=== PATIENT | female | born 1985 | race Caucasian/White ===

== ENCOUNTER 2017-04-13 21:34 | Emergency (ER) | payer MEDICARE, OTHER ==
[~2017-04-13] VITALS: Ht 160 cm; Wt 80.0 kg
[2017-04-13 21:36] VITALS: BP 122/81; PULSE 122; RESP 16; TEMP 100.1; O2SAT 95
[2017-04-13] MEDS ORDERED: LORA-474 PO (21:59)
[2017-04-13] MEDS ORDERED: SERO400T PO (21:59)
[2017-04-13] MEDS ORDERED: TRAZ300T2 PO (21:59)
[2017-04-13] MEDS ORDERED: TRIL300T PO (21:59)
[2017-04-13] MEDS ORDERED: DILA100C PO (21:59)
[2017-04-13] MEDS ORDERED: SERO200T PO (21:59)
[2017-04-13] MEDS ORDERED: OXYC-396 PO (21:59)
[2017-04-13] MEDS ORDERED: NEUR800T PO (21:59)
[2017-04-13 23:51] VITALS: BP 118/71; PULSE 111; RESP 20; O2SAT 96
--- NOTE | 2017-04-14 01:57 | PD ---
HPI Chief Complaint: Medical Clearance Time Seen by Provider: 01:31 Travel History International Travel<30 days: No Contact w/Intl Traveler<30days: No Traveled to known affect area: No History of Present Illness HPI 31-year-old female requesting medication for seizure disorder and psychiatric disorder. Patient has history of seizure and schizoaffective disorder. Patient was released from psychiatric hospital today and unable to fill the prescription tonight for her routine medication. Patient states that she has mild coughing congestion recently from a cold. Patient denies any headache. Patient denies any chest pain or shortness of breath. Patient denies abdominal pain. Patient denies any nausea vomiting. Patient states that she has mild intermittent diarrhea. PFSH Past Medical History Asthma: Yes (CHILDHOOD,STABLE NOW.) Anxiety: Yes COPD: No Diabetes: No Medical other: Yes (EPILEPSY , PTSD ) Migraines: Yes Schizophrenia: Yes ?: Not Past Surgical History Cholecystectomy: Yes Social History Alcohol Use: No Tobacco Use: Yes Substance Use: No Allergies-Medications (Allergen,Severity, Reaction): Coded Allergies: divalproex sodium (Unverified Allergy, Severe, 04/13/17) penicillin G (Unverified Allergy, Severe, 04/13/17) Reported Meds & Prescriptions Reported Meds & Active Scripts Active Reported Trileptal (Oxcarbazepine) 300 Mg Tab 300 Mg PO DAILY Dilantin (Phenytoin Extended) 100 Mg Cap 200 Mg PO BID Trazodone (Trazodone HCl) 300 Mg Tab 300 Mg PO HS Seroquel (Quetiapine Fumarate) 400 Mg Tab 600 Mg PO HS Seroquel (Quetiapine Fumarate) 200 Mg Tab 200 Mg PO DAILY Oxycodone (Oxycodone HCl) 20 Mg Tab 20 Mg PO BID PRN Neurontin (Gabapentin) 800 Mg Tab 1,200 Mg PO BID Ativan (Lorazepam) 1 Mg Tab 1 Mg PO BID PRN Review of Systems General / Constitutional: No: Fever Eyes: No: Visual changes HENT: No: Headaches Cardiovascular: No: Chest Pain or Discomfort Respiratory: No: Shortness of Breath Gastrointestinal: No: Abdominal Pain Genitourinary: No: Dysuria Musculoskeletal: No: Pain Skin: No Rash Neurologic: No: Weakness Psychiatric: No: Depression Endocrine: No: Polydipsia Hematologic/Lymphatic: No: Easy Bruising Physical Exam Narrative GENERAL: Well-nourished, well-developed patient. SKIN: Focused skin assessment warm/dry. HEAD: Normocephalic. EYES: No scleral icterus. No injection or drainage. NECK: Supple, trachea midline. No JVD or lymphadenopathy. CARDIOVASCULAR: Regular rate and rhythm without murmurs, gallops, or rubs. RESPIRATORY: Breath sounds equal bilaterally. No accessory muscle use. GASTROINTESTINAL: Abdomen soft, non-tender, nondistended. MUSCULOSKELETAL: No cyanosis, or edema. BACK: Nontender without obvious deformity. No CVA tenderness. Neurologic exam normal. Data Data Last Documented VS Vital Signs Date Time Temp Pulse Resp B/P (MAP) Pulse Ox O2 Delivery O2 Flow Rate FiO2 04/13/17 23:51 111 20 118/71 (87) 96 Room Air 04/13/17 21:36 100.1 Orders Orders Gabapentin (Neurontin) (04/14/17 02:00) Quetiapine (Seroquel) (04/14/17 02:00) Phenytoin (Dilantin) (04/14/17 02:00) MDM Medical Decision Making Medical Screen Exam Complete: Yes Emergency Medical Condition: Yes Differential Diagnosis Differential diagnosis including medication for medical condition. Narrative Course 31-year-old female with request for medication tonight for her seizure and her psychiatric condition. Neurontin, Seroquel and Dilantin given. Advised patient to follow up with a local physician. Diagnosis Primary Impression: Seizure Patient Instructions: General Instructions Additional Instructions: Advised patient to continue medications as directed. Follow-up with local physician. Med/Other Pt SpecificInfo: No Change to Meds Disposition: 01 DISCHARGE HOME Condition: Stable Fred Chase MD Apr 14, 2017 01:57
[2017-04-14] MEDS ORDERED: PHENYTOIN SODIUM 100 MG CAP PO ONE (02:00)
[2017-04-14] MEDS ORDERED: QUEtiapine FUMARATE 300 MG TAB PO ONE (02:00)
[2017-04-14] MEDS ORDERED: GABAPENTIN 400 MG CAP PO ONE (02:00)
== END 2017-04-14 02:12 | disposition home or self-care (01) ==
LOC: NEPE 21:34
DX: G40.909 Epilepsy, unspecified, not intractable, without status epilepticus (principal); F25.9 Schizoaffective disorder, unspecified; R19.7 Diarrhea, unspecified; Z72.0 Tobacco use
CPT/HCPCS: 99283

== ENCOUNTER 2017-04-14 17:59 | Inpatient (IN) | payer MEDICARE, OTHER ==
[~2017-04-14] VITALS: Ht 162.6 cm; Wt 76.3 kg
[~2017-04-14 17:59] MED LIST: DILA100C PO; LORA-474 PO; NEUR800T PO; OXYC-396 PO; SERO200T PO; SERO400T PO; TRAZ300T2 PO; TRIL300T PO
[2017-04-14 18:20] VITALS: BP 119/68; PULSE 87; RESP 20; TEMP 97.5; O2SAT 99
[2017-04-14 19:06] LABS: AUTOMATED NEUTROPHIL # 3.6 TH/MM3 (1.8-7.7); BASOPHIL # 0.1 TH/MM3 (0-0.2); BASOPHIL % 0.9 % (0.0-2.0); EOSINOPHIL # 0.1 TH/MM3 (0-0.4); EOSINOPHIL % 1.3 % (0.0-4.0); HEMATOCRIT 39.3 % (35.0-46.0); HEMOGLOBIN 13.5 GM/DL (11.6-15.3); LYMPH % 27.9 % (9.0-44.0); LYMPHOCYTE # 1.7 TH/MM3 (1.0-4.8); MEAN CORPUSCULAR HGB CONC 34.4 % (32.0-36.0); MEAN PLATELET VOLUME 7.5 FL (7.0-11.0); MONO % 11.8 % (0.0-8.0); MONOCYTE # 0.7 TH/MM3 (0-0.9); NEUT % 58.1 % (16.0-70.0); PLATELET COUNT 250 TH/MM3 (150-450); RED BLOOD COUNT 4.23 MIL/MM3 (4.00-5.30); RED CELL DISTRIBUTION WIDTH 13.5 % (11.6-17.2); WHITE BLOOD COUNT 6.3 TH/MM3 (4.0-11.0)
[2017-04-14 19:20] LABS: ALBUMIN 4.3 GM/DL (3.4-5.0); AST (GOT) 34 U/L (15-37); BLOOD UREA NITROGEN 11 MG/DL (7-18); CHLORIDE 106 MEQ/L (98-107); CREATININE 0.81 MG/DL (0.50-1.00); GLOMERULAR FILTRATION RATE 82 ML/MIN (>89); GLUCOSE,RANDOM 85 MG/DL (74-106); SODIUM (NA) 138 MEQ/L (136-145)
[2017-04-14] MEDS ORDERED: LORazepam 2 MG/ML VIAL ONE (19:20)
[2017-04-14 19:26] VITALS: BP 128/73; PULSE 100; RESP 18; O2SAT 98
[2017-04-14] MEDS ORDERED: LORazepam 2 MG/ML VIAL IV PUSH ONE (19:30)
[2017-04-14] MEDS ORDERED: levETIRAcetam INJ 100 ML IV ONE (19:30)
[2017-04-14 19:38] LABS: ALKALINE PHOSPHATASE 68 U/L (45-117); ALT (GPT) 65 U/L (10-53); PHENYTOIN (DILANTIN) 4.5 MCG/ML (10.0-20.0); TOTAL BILIRUBIN ADULT 0.2 MG/DL (0.2-1.0); TOTAL PROTEIN 8.4 GM/DL (6.4-8.2)
--- NOTE | 2017-04-14 19:56 | PD ---
HPI . Psychiatric Chief Complaint: Psychiatric Symptoms Time Seen by Provider: 19:17 Travel History International Travel<30 days: No Contact w/Intl Traveler<30days: No Traveled to known affect area: No History of Present Illness HPI 31-year-old female history of seizure activity, seen here last night given a dose of her medications which she had ran out of, and given prescriptions for same, presents this evening with recurrent seizure activity. 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 Patient was in triage and witnessed to have a tonic-clonic episode lasting approximately 30- 45 seconds, followed by several seconds of confusion within 2-3 minutes was completely awake and alert. This may represent patient's chronic seizure activity, patient given Ativan 1 mg IV push, followed by loading with Keppra 1 g. Patient currently has no complaints. Denies having headache visual changes , neck pain or stiffness, chest pain shortness of breath or cough, focal weakness or tingling. Patient did not have any tongue biting or mouth lesions noted afterwards, and has no incontinence. Patient denies fever chills or sweats or recent concomitant illness. [facility] Past Medical History Narrative Medical Past medical history reviewed. See history of present illness Asthma: Yes (CHILDHOOD,STABLE NOW.) Anxiety: Yes COPD: No Diabetes: No Medical other: Yes (MENTALY RETARDED) Migraines: Yes Schizophrenia: Yes Seizures: Yes Tetanus Vaccination: < 5 Years ?: Not Past Surgical History Cholecystectomy: Yes Social History Alcohol Use: No Tobacco Use: Yes Substance Use: No Allergies-Medications (Allergen,Severity, Reaction): Coded Allergies: divalproex sodium (Unverified Allergy, Severe, 04/13/17) penicillin G (Unverified Allergy, Severe, 04/13/17) Reported Meds & Prescriptions Reported Meds & Active Scripts Active Reported Trileptal (Oxcarbazepine) 300 Mg Tab 300 Mg PO DAILY Dilantin (Phenytoin Extended) 100 Mg Cap 200 Mg PO BID Trazodone (Trazodone HCl) 300 Mg Tab 300 Mg PO HS Seroquel (Quetiapine Fumarate) 400 Mg Tab 600 Mg PO HS Seroquel (Quetiapine Fumarate) 200 Mg Tab 200 Mg PO DAILY Oxycodone (Oxycodone HCl) 20 Mg Tab 20 Mg PO BID PRN Neurontin (Gabapentin) 800 Mg Tab 1,200 Mg PO BID Ativan (Lorazepam) 1 Mg Tab 1 Mg PO BID PRN Narrative Medication Allergies and medications reviewed Review of Systems Except as stated in HPI: all other systems reviewed are Neg General / Constitutional: No: Fever Eyes: No: Visual changes HENT: No: Headaches Cardiovascular: No: Chest Pain or Discomfort Respiratory: No: Shortness of Breath Gastrointestinal: No: Abdominal Pain Genitourinary: No: Dysuria Musculoskeletal: No: Pain Skin: No Rash Neurologic: Positive: Seizures, No: Weakness, Focal Abnormalities, Coordination Problem, Ataxia, Headache, Incontinence, Sensory Disturbance Psychiatric: No: Depression Endocrine: No: Polydipsia Hematologic/Lymphatic: No: Easy Bruising Physical Exam Narrative GENERAL: Awake alert oriented 3 no acute distress SKIN: Warm and dry. Color is normal no diaphoresis cyanosis or pallor HEAD: Atraumatic. Normocephalic. EYES: Pupils equal and round. No scleral icterus. No injection or drainage. EOMI no nystagmus ENT: No nasal bleeding or discharge. Mucous membranes pink and moist. Uvula midline no stridor no drooling tolerating by mouth, phonating normally NECK: Trachea midline. No JVD. Negative Kernig's Brudzinski's, full range of motion CARDIOVASCULAR: Regular rate and rhythm. S1-S2 no murmurs or gallops RESPIRATORY: No accessory muscle use. Clear to auscultation. Breath sounds equal bilaterally. GASTROINTESTINAL: Abdomen soft, non-tender, nondistended. Hepatic and splenic margins not palpable. MUSCULOSKELETAL: Extremities without clubbing, cyanosis, or edema. No obvious deformities. NEUROLOGICAL: Awake and alert. No obvious cranial nerve deficits. Motor grossly within normal limits. Five out of 5 muscle strength in the arms and legs. Normal speech. PSYCHIATRIC: Appropriate mood and affect; cooperative Data Data Last Documented VS Vital Signs Date Time Temp Pulse Resp B/P (MAP) Pulse Ox O2 Delivery O2 Flow Rate FiO2 04/14/17 19:26 100 18 128/73 (91) 98 Room Air 04/14/17 18:20 97.5 Orders Orders Complete Blood Count With Diff (04/14/17 18:27) Comprehensive Metabolic Panel (04/14/17 18:27) Phenytoin (Dilantin) (04/14/17 18:27) Psych Screen (04/14/17 18:27) Drug Screen, Random Urine (04/14/17 18:27) Lorazepam Inj (Ativan Inj) (04/14/17 19:20) Lorazepam Inj (Ativan Inj) (04/14/17 19:30) Levetiracetam Inj (Keppra Inj) (04/14/17 19:30) Labs Laboratory Tests Test 04/14/17 18:30 White Blood Count 6.3 TH/MM3 Red Blood Count 4.23 MIL/MM3 Hemoglobin 13.5 GM/DL Hematocrit 39.3 % Mean Corpuscular Volume 93.0 FL Mean Corpuscular Hemoglobin 32.0 PG Mean Corpuscular Hemoglobin Concent 34.4 % Red Cell Distribution Width 13.5 % Platelet Count 250 TH/MM3 Mean Platelet Volume 7.5 FL Neutrophils (%) (Auto) 58.1 % Lymphocytes (%) (Auto) 27.9 % Monocytes (%) (Auto) 11.8 % Eosinophils (%) (Auto) 1.3 % Basophils (%) (Auto) 0.9 % Neutrophils # (Auto) 3.6 TH/MM3 Lymphocytes # (Auto) 1.7 TH/MM3 Monocytes # (Auto) 0.7 TH/MM3 Eosinophils # (Auto) 0.1 TH/MM3 Basophils # (Auto) 0.1 TH/MM3 CBC Comment DIFF FINAL Differential Comment Blood Urea Nitrogen 11 MG/DL Creatinine 0.81 MG/DL Random Glucose 85 MG/DL Total Protein 8.4 GM/DL Albumin 4.3 GM/DL Calcium Level 9.0 MG/DL Alkaline Phosphatase 68 U/L Aspartate Amino Transf (AST/SGOT) 34 U/L Alanine Aminotransferase (ALT/SGPT) 65 U/L Total Bilirubin 0.2 MG/DL Sodium Level 138 MEQ/L Potassium Level 3.7 MEQ/L Chloride Level 106 MEQ/L Carbon Dioxide Level 23.0 MEQ/L Anion Gap 9 MEQ/L Estimat Glomerular Filtration Rate 82 ML/MIN Urine Opiates Screen NEG Urine Barbiturates Screen NEG Phenytoin (Dilantin) Level 4.5 MCG/ML Urine Amphetamines Screen NEG Urine Benzodiazepines Screen NEG Urine Cocaine Screen NEG Urine Cannabinoids Screen NEG MDM Medical Decision Making Medical Screen Exam Complete: Yes Emergency Medical Condition: Yes Medical Record Reviewed: Yes Differential Diagnosis She seizures, seizure-like activity/pseudoseizures, psychosomatic Narrative Course Patient's lab reviewed, patient's Dilantin level low low therapeutic at 4.7. As noted above patient was given Ativan for recurrent seizure activity, as well as loaded with Keppra 1 g. Patient will be loaded orally with her evening dose of Dilantin. Diagnosis Primary Impression: Seizures Patient Instructions: General Instructions, Generalized Tonic Clonic Seizures ( ED) Additional Instructions: Take medications as prescribed. Follow-up with your neurologist. Return for worsening Disposition: 01 DISCHARGE HOME Condition: Stable Ilir Wright MD Apr 14, 2017 19:56
[2017-04-14] MEDS ORDERED: PHENYTOIN SODIUM 100 MG CAP PO ONE (20:00)
[2017-04-15 00:46] VITALS: BP 117/78; PULSE 89; RESP 18; TEMP 98.1; O2SAT 99
[2017-04-15] MEDS ORDERED: QUEtiapine FUMARATE 300 MG TAB PO ONE (04:15)
[2017-04-15] MEDS ORDERED: OXcarbazepine 300 MG TAB PO ONE (04:15)
[2017-04-15] MEDS ORDERED: GABAPENTIN 400 MG CAP PO ONE (04:15)
[2017-04-15] MEDS ORDERED: traZODone HCL 100 MG TAB PO ONE (04:15)
[2017-04-15 04:30] VITALS: BP 127/78; PULSE 89; RESP 18; TEMP 98.1; O2SAT 99
[2017-04-15 07:49] VITALS: BP 107/61; PULSE 90; RESP 18; O2SAT 99
[2017-04-15] MEDS ORDERED: LORazepam 1 MG TAB PO ONE (11:15)
[2017-04-15] MEDS ORDERED: PHENYTOIN SODIUM 100 MG CAP PO ONE ×2 (11:15→11:30)
[2017-04-15 13:45] VITALS: BP 102/67; PULSE 103; RESP 16; TEMP 97.9; O2SAT 96
[2017-04-15] MEDS ORDERED: ALUMINUM/MAGNESIUM/SIMETH 30 ML CUP PO PRN (18:30)
[2017-04-15] MEDS ORDERED: MAGNESIUM HYDROXIDE SUSP 30 ML CUP PO PRN (18:30)
[2017-04-15] MEDS ORDERED: ACETAMINOPHEN 325 MG TAB PO PRN (18:30)
[2017-04-15 19:10] VITALS: BP 102/68; PULSE 103; RESP 18; TEMP 99; O2SAT 96
[2017-04-15] MEDS: QUEtiapine FUMARATE 200 MG TAB PO SCH (20:58)
[2017-04-15] MEDS: traZODone HCL 100 MG TAB PO SCH (20:59)
[2017-04-15] MEDS: GABAPENTIN 400 MG CAP PO SCH (20:59)
[2017-04-15] MEDS: PHENYTOIN SODIUM 100 MG CAP PO SCH (20:59)
[2017-04-15] MEDS: REMOVE OLD NICOTINE PATCH T-DERMAL SCH (21:00)
[2017-04-15] MEDS: LORazepam 1 MG TAB PO PRN (21:33)
[2017-04-16 05:08] VITALS: BP 117/70; PULSE 94; RESP 16; TEMP 98.6; O2SAT 96
[2017-04-16] MEDS ORDERED: NICOTINE 21 MG/24 HR PATCH T-DERMAL SCH (09:00)
[2017-04-16] MEDS: GABAPENTIN 400 MG CAP PO SCH ×2 (09:51→21:16)
[2017-04-16] MEDS: QUEtiapine FUMARATE 200 MG TAB PO SCH ×2 (09:51→21:17)
[2017-04-16] MEDS: OXcarbazepine 300 MG TAB PO SCH (09:52)
[2017-04-16] MEDS: PHENYTOIN SODIUM 100 MG CAP PO SCH ×2 (09:52→21:17)
[2017-04-16] MEDS: LORazepam 1 MG TAB PO PRN (09:52)
[2017-04-16] MEDS: NICOTINE 21 MG/24 HR PATCH T-DERMAL SCH (10:30)
[2017-04-16] MEDS ORDERED: KETOROLAC TROMETHAMINE 10 MG TAB PO PRN (10:30)
[2017-04-16 10:39] LABS: CHOLESTEROL 210 MG/DL (120-200); TRIGLYCERIDES 172 MG/DL (42-150)
--- NOTE | 2017-04-16 10:39 | PD.CONS ---
HPI Service [facility] Consult Requested By Dr. Ramirez Reason for Consult Medical management Primary Care Physician No Primary Care Physician Diagnoses: History of Present Illness 31-year-old female with a past medical history significant for schizoaffective disorder and epilepsy presents to the emergency department with a chief complaint of recurrent seizure activity. The patient has a long history of seizure-like activity/pseudoseizures. The patient reports she has a history of epilepsy for which she takes Dilantin. She reports compliance with her medications until yesterday when she had run out. Dilantin level IV.5 yesterday. She states she was discharged from the [facility] on 04/13/17 where she was given Dilantin, Tegretol and gabapentin. In the waiting room of the emergency department yesterday the patient had tonic clonic seizure like activity that lasted approximately 30-45 seconds without loss of bowel or bladder. The patient was apparently confused for a very short period of time following the episode and then returned to baseline within 2-3 minutes. The patient reports that she has chronic pain in her back from scoliosis and in her left leg from an ORIF secondary to trauma. She reports that she used to take 20 mg of OxyContin Contin twice a [place] but cannot find a provider here to prescribe this medication for her. She complains of body aches, sore throat and cough. Review of Systems Subjective fever/chills Denies blurry vision, otorrhea, rhinorrhea Positive sore throat and cough No chest pain, palpitations, shortness of breath No abdominal pain Denies constipation/diarrhea/nausea/vomiting Positive muscle pain throughout No rashes Past Family Social History Allergies: Coded Allergies: divalproex sodium (Unverified Allergy, Severe, 04/13/17) penicillin G (Unverified Allergy, Severe, 04/13/17) Past Medical History BRANDON per patient report, she does not have a CPAP machine Epilepsy Scoliosis Chronic pain Past Surgical History Left leg ORIF Cholecystectomy Reported Medications Reported Meds & Active Scripts Active Reported Trileptal (Oxcarbazepine) 300 Mg Tab 300 Mg PO DAILY Dilantin (Phenytoin Extended) 100 Mg Cap 200 Mg PO BID Trazodone (Trazodone HCl) 300 Mg Tab 300 Mg PO HS Seroquel (Quetiapine Fumarate) 400 Mg Tab 600 Mg PO HS Seroquel (Quetiapine Fumarate) 200 Mg Tab 200 Mg PO DAILY Oxycodone (Oxycodone HCl) 20 Mg Tab 20 Mg PO BID PRN Neurontin (Gabapentin) 800 Mg Tab 1,200 Mg PO BID Ativan (Lorazepam) 1 Mg Tab 1 Mg PO BID PRN Family History Unknown Social History Smokes approximately 2 packs per day. Denies alcohol and illicit drugs. Physical Exam Vital Signs Vital Signs Date Time Temp Pulse Resp B/P (MAP) Pulse Ox O2 Delivery O2 Flow Rate FiO2 04/16/17 05:08 98.6 94 16 117/70 (86) 96 04/15/17 19:10 99.0 103 18 102/68 (79) 96 04/15/17 17:35 04/15/17 13:45 97.9 103 16 102/67 (79) 96 Room Air Physical Exam GENERAL: female sitting up in bed SKIN: No rashes, ecchymoses or lesions. Cool and dry. HEAD: Atraumatic. Normocephalic. No temporal or scalp tenderness. EYES: Pupils equal round and reactive. Extraocular motions intact. No scleral icterus. No injection or drainage. ENT: Nose without bleeding, purulent drainage or septal hematoma. Throat without erythema, tonsillar hypertrophy or exudate. Uvula midline. Airway patent. NECK: Trachea midline. No JVD or lymphadenopathy. Supple, nontender, no meningeal signs. CARDIOVASCULAR: Regular rate and rhythm without murmurs, gallops, or rubs. RESPIRATORY: Clear to auscultation. Breath sounds equal bilaterally. No wheezes , rales, or rhonchi. GASTROINTESTINAL: Abdomen soft, non-tender, nondistended. No hepato-splenomegaly , or palpable masses. No guarding. MUSCULOSKELETAL: Extremities without clubbing, cyanosis, or edema. No joint tenderness, effusion, or edema noted. No calf tenderness. NEUROLOGICAL: Awake and alert. Cranial nerves II through XII intact. Motor and sensory grossly within normal limits. Normal speech. Flat affect. Laboratory Laboratory Tests Test 04/16/17 09:40 Result Diagram: 04/14/17182904/14/171829 Assessment and Plan Assessment and Plan Assessment/plan: 1. Seizure versus pseudoseizure Patient recently ran out of her Dilantin Dilantin level subtherapeutic at 4.5 Patient status post 1 mg Ativan in the ED followed by 1 g Keppra Status post resumption of home Dilantin yesterday Monitor for seizure activity Follow Dilantin level Consider Neurology consult if seizures recur while patient compliant with medication 2. Chronic pain Patient reports history of opioid pain medication Requests opiates for her back and leg pain No indication for opiates at this time Toradol prn 3. BRANDON Will need outpatient follow-up including sleep study to assess the need for possible CPAP 4. Nicotine dependence Cessation counseling provided Nicotine patch Thank you for this consultation, will follow along with you. Leilani Chew MD Apr 16, 2017 10:39
[2017-04-16 10:42] LABS: CHOLESTEROL/ HDL RATIO 5.69 RATIO; HDL CHOLESTEROL 36.9 MG/DL (40.0-60.0); LDL CHOLESTEROL 139 MG/DL (0-99)
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
[2017-04-16 18:33] VITALS: BP 110/70; PULSE 95; RESP 18; TEMP 98.4; O2SAT 97
[2017-04-16 21:00] VITALS: BP 131/82; PULSE 99; RESP 22; TEMP 98.6; O2SAT 98
[2017-04-16] MEDS: REMOVE OLD NICOTINE PATCH T-DERMAL SCH (21:00)
[2017-04-16] MEDS: REMOVE OLD PATCH T-DERMAL SCH (21:00)
[2017-04-16] MEDS: LORazepam 2 MG/ML VIAL IM PRN (21:16)
[2017-04-16] MEDS: traZODone HCL 100 MG TAB PO SCH (21:17)
[2017-04-16 22:02] VITALS: BP 115/78; PULSE 87; RESP 18; TEMP 97.9; O2SAT 97
--- NOTE | 2017-04-16 22:12 | RADRPT ---
EXAM DATE/TIME: 04/16/2017 21:45 [place] COMPARISON: No previous studies available for comparison. INDICATIONS : Seizure. RADIATION DOSE: 47.09 CTDIvol (mGy) MEDICAL HISTORY : Seizures. SURGICAL HISTORY : None. ENCOUNTER: Initial ACUITY: 1 day PAIN SCALE: 0/10 LOCATION: cranial TECHNIQUE: Multiple contiguous axial images were obtained of the head. Using automated exposure control and adj ustment of the mA and/or kV according to patient size, radiation dose was kept as low as reasonably a chievable to obtain optimal diagnostic quality images. DICOM format image data is available electro nically for review and comparison. FINDINGS: CEREBRUM: The ventricles are normal for age. No evidence of midline shift, mass lesion, hemorrhage or acute in farction. No extra-axial fluid collections are seen. POSTERIOR FOSSA: The cerebellum and brainstem are intact. The 4th ventricle is midline. The cerebellopontine angle i s unremarkable. EXTRACRANIAL: There is mucoperiosteal thickening of the visualized sinuses. Trace fluid seen in both maxillary air cells. SKULL: The calvaria is intact. No evidence of skull fracture. CONCLUSION: No bleed or other acute intracranial abnormality. Mild sinus disease. Winston Mcfarland MD on April 16, 2017 at 22:09 Board Certified Radiologist. This report was verified electronically.
[2017-04-17] VITALS: BP 103/68; PULSE 72; RESP 16; O2SAT 96
[2017-04-17] MEDS: LORazepam 1 MG TAB PO PRN ×2 (03:28→20:32)
[2017-04-17 04:00] VITALS: BP 111/85; PULSE 78; RESP 20; O2SAT 98
[2017-04-17 05:44] VITALS: BP 104/71; PULSE 84; RESP 16; TEMP 98.1; O2SAT 95
[2017-04-17] MEDS ORDERED: REMOVE OLD PATCH T-DERMAL SCH (09:00)
[2017-04-17] MEDS: QUEtiapine FUMARATE 200 MG TAB PO SCH ×2 (09:21→20:32)
[2017-04-17] MEDS: PHENYTOIN SODIUM 100 MG CAP PO SCH ×2 (09:21→20:33)
[2017-04-17] MEDS: GABAPENTIN 400 MG CAP PO SCH ×2 (09:21→20:32)
[2017-04-17] MEDS: OXcarbazepine 300 MG TAB PO SCH (09:21)
[2017-04-17 09:24] LABS: HEMOGLOBIN A1C 5.4 % (4.3-6.0)
[2017-04-17] MEDS: NICOTINE 21 MG/24 HR PATCH T-DERMAL SCH (09:25)
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
--- NOTE | 2017-04-17 14:14 | HHI.PR ---
Subjective Remarks Patient reports an episode of seizure last night. She states she does not remember the event. In discussing with the nurse, the end of the seizure was witnessed by staff. Patient complains of sore throat, runny nose, fatigue and sinus pressure. Objective Vitals Vital Signs Date Time Temp Pulse Resp B/P (MAP) Pulse Ox O2 Delivery O2 Flow Rate FiO2 04/17/17 05:44 98.1 84 16 104/71 (82) 95 04/17/17 04:00 78 20 111/85 (94) 98 04/17/17 00:00 72 16 103/68 (80) 96 04/16/17 22:02 97.9 87 18 115/78 (90) 97 04/16/17 21:00 98.6 99 22 131/82 (98) 98 04/16/17 21:00 98 21 04/16/17 18:33 98.4 95 18 110/70 (83) 97 I/O 04/16/17 04/16/17 04/16/17 04/17/17 04/17/17 04/17/17 07:00 15:00 23:00 07:00 15:00 23:00 Intake Total 480 ml Balance 480 ml Intake Oral 480 ml Result Diagram: 04/14/17182904/14/171829 Objective Remarks GENERAL: female sitting up in bed SKIN: No rashes, ecchymoses or lesions. Cool and dry. HEAD: Atraumatic. Normocephalic. No temporal or scalp tenderness. EYES: Pupils equal round and reactive. Extraocular motions intact. No scleral icterus. No injection or drainage. ENT: Nose without bleeding, purulent drainage or septal hematoma. Throat without erythema, tonsillar hypertrophy or exudate. Uvula midline. Airway patent. Maxillary sinuses tender to palpation. NECK: Trachea midline. No JVD or lymphadenopathy. Supple, nontender, no meningeal signs. CARDIOVASCULAR: Regular rate and rhythm without murmurs, gallops, or rubs. RESPIRATORY: Clear to auscultation. Breath sounds equal bilaterally. No wheezes , rales, or rhonchi. GASTROINTESTINAL: Abdomen soft, non-tender, nondistended. No hepato-splenomegaly , or palpable masses. No guarding. MUSCULOSKELETAL: Extremities without clubbing, cyanosis, or edema. No joint tenderness, effusion, or edema noted. No calf tenderness. NEUROLOGICAL: Awake and alert. Cranial nerves II through XII intact. Motor and sensory grossly within normal limits. Normal speech. Flat affect. A/P Assessment and Plan 1. Seizure versus pseudoseizure Patient recently ran out of her Dilantin - restarted home Dilantin Dilantin level subtherapeutic at 5.3 Patient reportedly had repeat episode of seizure last night Neurology consulted, appreciate assistance 2. Chronic pain Patient reports history of opioid pain medication Requests opiates for her back and leg pain No indication for opiates at this time Toradol prn 3. BRANDON Will need outpatient follow-up including sleep study to assess the need for possible CPAP 4. Nicotine dependence Cessation counseling provided Nicotine patch 5. Upper respiratory infection On physical exam throat without erythema and no nasal discharge present Patient complains of extreme sinus pain and sore throat No leukocytosis Chloraseptic [place] per patient request 6. History of hypothyroidism Patient reports fatigue, states she was previously on Synthroid TSH pending Leilani Chew MD Apr 17, 2017 14:14
[2017-04-17 17:25] VITALS: BP 120/76; PULSE 84; RESP 16; TEMP 98.4; O2SAT 95
[2017-04-17] MEDS: traZODone HCL 100 MG TAB PO SCH (20:32)
[2017-04-17] MEDS: REMOVE OLD PATCH T-DERMAL SCH (20:33)
[2017-04-17] MEDS: REMOVE OLD NICOTINE PATCH T-DERMAL SCH (20:33)
[2017-04-17] MEDS: PHENOL 1.4% SOLN 180 ML BTL OROPHARYNG PRN (20:40)
[2017-04-18 05:41] VITALS: BP 103/66; PULSE 92; RESP 18; TEMP 98.3; O2SAT 95
[2017-04-18] MEDS: GABAPENTIN 400 MG CAP PO SCH ×2 (08:38→20:58)
[2017-04-18] MEDS: OXcarbazepine 300 MG TAB PO SCH (08:38)
[2017-04-18] MEDS: QUEtiapine FUMARATE 200 MG TAB PO SCH ×2 (08:38→20:59)
[2017-04-18] MEDS: NICOTINE 21 MG/24 HR PATCH T-DERMAL SCH (08:40)
[2017-04-18] MEDS: LORazepam 2 MG/ML VIAL IM PRN (08:54)
[2017-04-18] MEDS: PHENYTOIN SODIUM 100 MG CAP PO SCH ×2 (09:00→17:26)
[2017-04-18] MEDS ORDERED: FOSPHENYTOIN INJ 1,000 MGPE in SODIUM CHLORIDE 0.9% INJ 50 ML IV ONE (14:00)
--- NOTE | 2017-04-18 14:09 | MB ---
cc: ELDA STEEL MD DATE OF CONSULTATION 04/18/2017 REASON FOR CONSULTATION Seizures. HISTORY OF PRESENT ILLNESS Ms. Acosta is a 31-year-old female with past medical history of schizoaffective disorder and epilepsy. She was diagnosed since she was 10-years -old as she states she had delayed milestones when she grew up she always had some stuttering. She has been on Dilantin 200 mg twice daily, gabapentin 1200 mg twice daily and recently Tegretol was added; she is uncertain about the dose. She also has a history of PTSD and anxiety with suicide attempt. She denies any family history of epilepsy, history of febrile convulsions, meningeal encephalitis or head trauma. The patient stated that she was diagnosed with his "stress-induced epilepsy." She describes these episodes as grand mal seizures with occasional loss of bowel and bladder function. Neurology is consulted to assist in the management of her seizures. REVIEW OF SYSTEMS A 12-point review of systems is negative except for what is stated in the HPI. PAST MEDICAL HISTORY 1. Obstructive sleep apnea; does not use CPAP. 2. Epilepsy. 3. Scoliosis. 4. Chronic pain. PAST SURGICAL HISTORY Left leg ORIF. MEDICATIONS 1. Trileptal 300 mg daily. 2. Dilantin 200 mg twice daily. 3. Trazodone. 4. Seroquel. 5. Oxycodone. 6. Neurontin 1200 mg twice daily. FAMILY HISTORY Unknown. SOCIAL HISTORY Smokes two packs per day. Denies alcohol or illicit drugs. PHYSICAL EXAMINATION GENERAL: Awake, aware, good historian. HEENT: Atraumatic, normocephalic. Intact hearing. Intact vision. Neck: Supple. No signs of meningeal irritation. HEART: Regular rate and rhythm. LUNGS: Clear to auscultation. No wheezes. ABDOMEN: Soft abdomen. No distention. EXTREMITIES: No clubbing, cyanosis or edema. NEUROLOGIC: Awake, alert, oriented to time, person and place. No dysarthria. No dysphasia. Upper and lower extremities are intact, 5/5. No abnormal movement. Normal tone. Cranial nerves II-XII are grossly intact. Reflexes 2+ bilaterally symmetrical. Plantars are bilaterally downgoing. [id number] intact. Stance and gait are intact. No ataxia. IMAGING - Head CT scan: No acute intracranial abnormality. IMPRESSION 1. History of epilepsy with history of breakthrough seizures. - Currently on Dilantin 200 mg twice daily, gabapentin 1200 mg twice daily and oxcarbazepine/Trileptal 300 mg daily. 2. Possible etiology of breakthrough seizures is noncompliance of medication. 3. Chronic pain syndrome. 4. Obstructive sleep apnea. PLAN 1. Neuro-checks q.4 hourly. 2. Resume home medication at current doses. 3. Obtain Dilantin level next a.m. 4. EEG. 5. MRI brain. 6. Seizure precautions. 7. DVT prophylaxis with SCDs. Thank you for the opportunity to participate in the care of your patient. MD BINA López/SULLY /1:38 PM /1:52 PM MTDNita
[2017-04-18] MEDS ORDERED: diphenhydrAMINE HCL 50 MG CAP PO ONE (16:30)
[2017-04-18 17:54] VITALS: BP 113/56; PULSE 85; RESP 18; O2SAT 95
[2017-04-18 18:13] VITALS: BP 113/56; PULSE 85; RESP 18; TEMP 98; O2SAT 95
--- NOTE | 2017-04-18 18:21 | HHI.PYPN ---
Subjective Remarks Patient initially seen by Dr. Jimenez the detailed initial psychiatric history and physical. The document reviewed and agreed with. The initial psychiatric template orders done by me Patient seen today on 4 E. where she was transferred by medicine to address a low Dilantin level. Patient seen in her room with nurse, chart review, patient compliant medications. Patient is somewhat childlike in her responses. Though also appears somewhat medically sophisticated in manipulation. She is requesting more schedule Ativan. That I declined to give her. She does denies suicidality and voices to me at this time. She does have some multiple vague somatic complaints asking for various medications Review of Systems Except as stated in HPI: all other systems reviewed are Neg Mental Status Examination Appearance: Appropriate Consciousness: Alert Orientation: Person, Place, Date/Time Motor Activity: Normal gait Speech: Slow Language: Adequate Fund of Knowledge: Poor Attention and Concentration: Adequate Memory: Unremarkable Mood: Anxious Affect: Labile Thought Process & Associations: Linear, Other (concrete) Thought Content: Hallucinations Hallucination Type: Auditory Delusion Type: None Suicidal Ideation: No Suicidal Plan: No Suicidal Intention: No Homicidal Ideation: No Homicidal Plan: No Homicidal Intention: No Insight: Poor Judgment: Poor Results Labs Test 04/18/17 10:15 Phenytoin (Dilantin) Level 4.6 MCG/ML Vitals/IOs Vital Signs Date Time Temp Pulse Resp B/P (MAP) Pulse Ox O2 Delivery O2 Flow Rate FiO2 04/18/17 18:13 98.0 85 18 113/56 (75) 95 04/16/17 21:00 21 04/15/17 13:45 Room Air 04/15/17 07:49 2.00 Intake and Output 04/18/17 04/18/17 04/19/17 08:00 16:00 00:00 Intake Total 240 ml Balance 240 ml Assessment & Plan Problem List: (1) Schizoaffective disorder ICD Codes: F25.9 - Schizoaffective disorder, unspecified Assessment & Plan Estimated LOS: days patient calm cooperative somewhat manipulative, and drug- seeking primarily for benzodiazepines. Denying suicidality of voices. For now continue treatment Justification for Cont. Inpt. This time patient would decompensate with placement lower level of care Discharge Planning Problem return to her [facility] Winston Ramirez MD Apr 18, 2017 18:21
[2017-04-18] MEDS ORDERED: ACETAMINOPHEN 325 MG TAB PO PRN (18:30)
[2017-04-18] MEDS ORDERED: MAGNESIUM HYDROXIDE SUSP 30 ML CUP PO PRN (18:30)
[2017-04-18] MEDS ORDERED: ALUMINUM/MAGNESIUM/SIMETH 30 ML CUP PO PRN (18:30)
[2017-04-18] MEDS: PHENOL 1.4% SOLN 180 ML BTL OROPHARYNG PRN (18:42)
[2017-04-18] MEDS: traZODone HCL 100 MG TAB PO SCH (20:58)
[2017-04-18] MEDS: REMOVE OLD PATCH T-DERMAL SCH (21:00)
[2017-04-18] MEDS: LORazepam 1 MG TAB PO PRN (21:33)
[2017-04-19] MEDS: PHENYTOIN SODIUM 100 MG CAP PO SCH ×2 (02:00→10:30)
[2017-04-19 05:31] VITALS: BP 84/59; PULSE 77; RESP 16; TEMP 98.1; O2SAT 96
[2017-04-19] MEDS: QUEtiapine FUMARATE 200 MG TAB PO SCH (08:29)
[2017-04-19] MEDS: LORazepam 1 MG TAB PO PRN (08:29)
[2017-04-19] MEDS: GABAPENTIN 400 MG CAP PO SCH (08:29)
[2017-04-19] MEDS: NICOTINE 21 MG/24 HR PATCH T-DERMAL SCH (08:30)
--- NOTE | 2017-04-19 09:50 | HHI.PYPN ---
Subjective Remarks Patient seen in her room floor staff, chart review, patient compliant medications. Patient calm cooperative pleasant with me today with some increased affect. She does state she is ready to return to her fpc in [place]. However we have not tachypneic medical clearance for stabilization of her seizure medication. Patient still showing some subtle drug -seeking primarily looking for more Ativan. However at this time we will defer to medical service and neurology for this. I will increase the interval for the Ativan from every 6 hours to every 8 hours. For now continue treatment Review of Systems Except as stated in HPI: all other systems reviewed are Neg Mental Status Examination Appearance: Appropriate Consciousness: Alert Orientation: Person, Place, Date/Time Motor Activity: Normal gait Speech: Slow Language: Adequate Fund of Knowledge: Poor Attention and Concentration: Adequate Memory: Unremarkable Mood: Anxious Affect: Labile Thought Process & Associations: Linear, Other (concrete) Thought Content: Hallucinations Hallucination Type: Auditory Delusion Type: None Suicidal Ideation: No Suicidal Plan: No Suicidal Intention: No Homicidal Ideation: No Homicidal Plan: No Homicidal Intention: No Insight: Poor Judgment: Poor Results Labs Test 04/18/17 10:15 04/19/17 07:59 Phenytoin (Dilantin) Level 4.6 MCG/ML 15.4 MCG/ML Vitals/IOs Vital Signs Date Time Temp Pulse Resp B/P (MAP) Pulse Ox O2 Delivery O2 Flow Rate FiO2 04/19/17 05:31 98.1 77 16 84/59 (67) 96 04/16/17 21:00 21 04/15/17 13:45 Room Air 04/15/17 07:49 2.00 Intake and Output 04/19/17 04/19/17 04/20/17 08:00 16:00 00:00 Intake Total 0 ml Balance 0 ml Assessment & Plan Problem List: (1) Schizoaffective disorder ICD Codes: F25.9 - Schizoaffective disorder, unspecified Assessment & Plan Estimated LOS: days patient calmer today less somatic today denies suicidality homicidality voices or visions. Compliant medication Justification for Cont. Inpt. At this time patient decompensate placed the lower level of care Discharge Planning Probable return to her fpc once patient medically cleared Problem Qualifiers (1) Schizoaffective disorder: Qualified Codes: F25.0 - Schizoaffective disorder, bipolar type Winston Ramirez MD Apr 19, 2017 09:50
[2017-04-19] MEDS ORDERED: LORazepam 2 MG/ML VIAL IM PRN (10:00)
[2017-04-19] MEDS: OXcarbazepine 300 MG TAB PO SCH (10:30)
[2017-04-19] MEDS: PHENOL 1.4% SOLN 180 ML BTL OROPHARYNG PRN (10:31)
[2017-04-19] MEDS ORDERED: TRIL300T PO (10:49)
[2017-04-19] MEDS ORDERED: TRAZ300T2 PO (10:49)
[2017-04-19] MEDS ORDERED: LORA-474 PO (10:49)
[2017-04-19] MEDS ORDERED: SERO200T PO (10:49)
[2017-04-19] MEDS ORDERED: DILA100C PO (10:49)
[2017-04-19] MEDS ORDERED: NEUR800T PO (10:49)
[2017-04-19] MEDS ORDERED: SERO300T PO (10:49)
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
--- NOTE | 2017-04-19 11:37 | HHI.PR ---
Subjective Remarks Follow-up on seizure disorder, hypothyroidism, and tobacco use. Spoke with nurse who states patient will be discharged today back to a skilled nursing once medically cleared. Met patient in psych unit on ground floor playing [email or web address]. Patient denies seizure activity, N/V/D, fevers, chills, cough, or SOB. Patient complains of vaginal itching, states this will happen when she wears a diaper. Patient is no longer wearing a diaper, but states that she only has one pair of panties and these are currently being washed. She denies any vaginal discharge, foul odor, or dysuria. She would like to get Vagisil cream. Objective Vitals Vital Signs Date Time Temp Pulse Resp B/P (MAP) Pulse Ox O2 Delivery O2 Flow Rate FiO2 04/19/17 05:31 98.1 77 16 84/59 (67) 96 04/18/17 18:13 98.0 85 18 113/56 (75) 95 04/18/17 17:54 85 18 113/56 (75) 95 I/O 04/18/17 04/18/17 04/18/17 04/19/17 04/19/17 04/19/17 07:00 15:00 23:00 07:00 15:00 23:00 Intake Total 960 ml 0 ml 240 ml Balance 960 ml 0 ml 240 ml Intake Oral 960 ml 0 ml 240 ml # Voids 3 1 Imaging Last Impressions Head CT 04/16/17 0000 Signed Impressions: Service Date/Time: Sunday, April 16, 2017 21:45 - CONCLUSION: No bleed or other acute intracranial abnormality. Mild sinus disease. Winston Mcfarland MD Objective Remarks GENERAL: female. SKIN: No rashes, ecchymoses or lesions. Cool and dry. HEAD: Atraumatic. Normocephalic. EYES: Pupils equal round and reactive. No scleral icterus. No injection or drainage. ENT: Nose without bleeding, purulent drainage. Airway patent. NECK: Trachea midline. CARDIOVASCULAR: Regular rate and rhythm without murmurs, gallops, or rubs. RESPIRATORY: Clear to auscultation. Breath sounds equal bilaterally. No wheezes , rales, or rhonchi. GASTROINTESTINAL: Abdomen soft, non-tender, nondistended. No guarding. MUSCULOSKELETAL: Extremities without clubbing, cyanosis, or edema. No joint tenderness, effusion, or edema noted. NEUROLOGICAL: Awake and alert. Cranial nerves grossly intact. Motor and sensory grossly within normal limits. Normal speech. Flat affect. A/P Assessment and Plan Seizure versus pseudoseizure - Patient recently ran out of her Dilantin - restarted home Dilantin - Dilantin level subtherapeutic at 5.3 - Neurology consulted, appreciate assistance - Dilantin increased by to 100mg TID, Dilantin level this morning 15.4 - Patient is also on Trileptal 300mg daily and Gabapentin 1,200mg BID - No reported seizure activity. Chronic pain - No repots of pain today. - Toradol prn if needed BRANDON - Will need outpatient follow-up including sleep study to assess the need for possible CPAP Nicotine dependence -Cessation counseling provided - Nicotine patch Upper respiratory infection - No leukocytosis - Chloraseptic Cope History of hypothyroidism - Patient reports fatigue, states she was previously on Synthroid - TSH WNL Vaginal itching - Likely due to wearing diaper, advised to keep area dry and clean, cotton panties - Can get OTC Vagisil cream if she desired, no rx needed. Psychiatry plans on discharging patient today to skilled nursing. Okay to discharge as long as Neurology has cleared patient. Anthony Lombardo Apr 19, 2017 11:37
[2017-04-19] MEDS ORDERED: LORazepam 1 MG TAB PO PRN (16:00)
--- NOTE | 2017-04-21 14:11 | PD.TTN ---
Patient Problems 1. Discharge planning 2. Medication compliance 3. Knowledge deficit 4. Lack of coping skills Progress Toward Goals Provider Present: Dr. Florin Castaneda Provider Input: 04/18/17 Doctor feels she could return group homthuy , some time to stabilize Psychiatric Counselors Present: Poornima Mckenzie LCSW Psych Therapist Input: 04/18/17 s/w [facility], they are sharing she has been med seeking for Benzos and they will accept her back and take care of her follow up Group Spec/RT/OT/FRITZ Present: CATRINA Taylor Group Spec/RT/OT/FRITZ Input: she does not attend group Poornima Mckenzie LCSW Apr 21, 2017 14:11
== END 2017-04-19 12:15 | DRG 885 ==
LOC: NEPE 17:59 → NEDA 04-15 15:39 → H260 04-15 17:10 → H4EA 04-18 15:00
PROVIDERS: ADMIT Psychiatry & Neurology Psychiatry; ATTEND Psychiatry & Neurology Psychiatry
DX: F25.0 Schizoaffective disorder, bipolar type (principal); G40.409 Other generalized epilepsy and epileptic syndromes, not intractable, without status epilepticus; F43.10 Post-traumatic stress disorder, unspecified; R41.83 Borderline intellectual functioning; E03.9 Hypothyroidism, unspecified; F17.210 Nicotine dependence, cigarettes, uncomplicated; F80.81 Childhood onset fluency disorder; G47.33 Obstructive sleep apnea (adult) (pediatric); G89.4 Chronic pain syndrome; M41.9 Scoliosis, unspecified; F41.9 Anxiety disorder, unspecified; M79.605 Pain in left leg; J02.9 Acute pharyngitis, unspecified; M54.9 Dorsalgia, unspecified; Z79.899 Other long term (current) drug therapy; Z91.5 Personal history of self-harm; R19.7 Diarrhea, unspecified
CPT/HCPCS: 70450; 80053; 80061; 80185; 80307; 83036; 84443; 85025; 99285; J1953; J2060; Q0163; Q2009